=== PATIENT | female | born 1965 | race Caucasian/White ===

== ENCOUNTER 2021-03-11 21:50 | Emergency (ER) | payer MEDICAID ==
[~2021-03-11] VITALS: Ht 154.9 cm; Wt 59.0 kg
[2021-03-11] MEDS ORDERED: ACETAMINOPHEN 325MG TABLET PO STA (22:41)
[2021-03-11] MEDS ORDERED: SODIUM CHLORIDE 0.9% 1,000 ML IV ONE (22:45)
[2021-03-11 23:12] LABS: BASOPHILS % 0.9 % (0.0-2.0); EOSINOPHILS % 1.9 % (0.0-5.0); HEMATOCRIT. 43.4 % (36.0-48.0); HEMOGLOBIN. 14.9 g/dL (12.0-16.0); LYMPHOCYTES % 33.6 % (20.0-50.0); MEAN CORPUSCULAR HEMOGLOBIN 30.5 pg (28.0-32.0); MEAN CORPUSCULAR VOLUME 89.1 fL (81.0-99.0); MONOCYTES % 9.1 % (2.0-8.0); NEUTROPHILS % 54.5 % (40.0-76.0); PLATELET 246 x1000/uL (130-400); RED BLOOD CELL COUNT 4.87 mill/uL (4.2-5.4); RED CELL DISTRIBUTION WIDTH 14.3 % (11.6-14.6)
[2021-03-11 23:17] LABS: CLARITY URINE CLEAR (CLEAR); COLOR URINE YELLOW (YELLOW); KETONES URINE NEGATIVE (NEGATIVE); LEUKOCYTE ESTERASE URINE TRACE (NEGATIVE); NITRITE URINE NEGATIVE (NEGATIVE); OCCULT BLOOD URINE NEGATIVE (NEGATIVE); PH URINE 6.5 (4.5-8.0); PROTEIN URINE NEGATIVE (NEGATIVE); SPECIFIC GRAVITY URINE 1.007 (1.005-1.030); UROBILINOGEN URINE 0.2 E.U./dL (0.2-1.0)
[2021-03-11 23:20] LABS: CHLORIDE 103 mEq/L (98-107)
[2021-03-11 23:29] LABS: CREATINE KINASE 81 IU/L (26-192)
[2021-03-12] MEDS ORDERED: KETOROLAC 30MG/ML VIAL IV ONE
[2021-03-12 02:55] VITALS: BP 118/78
== END 2021-03-12 03:13 | disposition home or self-care (01) ==
LOC: ER 21:50
DX: M79.10 Myalgia, unspecified site (principal)
CPT/HCPCS: 36415; 80053; 81003; 82550; 85025; 93005; 96361; 96374; 99284; J1885; J7030

== ENCOUNTER 2022-05-26 12:04 | Emergency (ER) | payer MEDICAID ==
[~2022-05-26] VITALS: Ht 165.1 cm; Wt 68.0 kg
[2022-05-26] MEDS ORDERED: HYDROCODONE/ACETAMINOPHEN 5/325MG TABLET PO ONE (12:30)
[2022-05-26] MEDS ORDERED: BACITRACIN ZINC OINT UDPKT TOP ONE (12:30)
[2022-05-26 12:43] VITALS: BP 156/76
[2022-05-26] MEDS ORDERED: IBUP-2029 MT (15:32)
[2022-05-26] MEDS ORDERED: HYDR-4001 MT (15:32)
== END 2022-05-26 15:51 | disposition home or self-care (01) ==
LOC: ER 12:58
DX: S06.899A Other specified intracranial injury with loss of consciousness of unspecified duration, initial encounter (principal); S01.112A Laceration without foreign body of left eyelid and periocular area, initial encounter; S59.802A Other specified injuries of left elbow, initial encounter; M25.532 Pain in left wrist; W01.198A Fall on same level from slipping, tripping and stumbling with subsequent striking against other object, initial encounter; Y93.01 Activity, walking, marching and hiking; Y92.480 Sidewalk as the place of occurrence of the external cause
CPT/HCPCS: 29105; 70486; 73080; 73110; 99284

== ENCOUNTER 2024-06-02 01:10 | Emergency (ER) | payer MEDICAID, OTHER ==
[~2024-06-02] VITALS: Ht 157.5 cm; Wt 60.0 kg
[~2024-06-02 01:10] MED LIST: HYDR-4001 MT; IBUP-2029 MT
[2024-06-02 01:34] VITALS: BP 140/80; PULSE 74; RESP 18; TEMP 98; O2SAT 100
== END 2024-06-02 05:00 | disposition home or self-care (01) ==
LOC: ER 01:10
DX: R51.9 Headache, unspecified (principal)
CPT/HCPCS: 99284